=== PATIENT | male | born 1975 | race African-American/Black ===

== ENCOUNTER 2021-10-04 09:05 | Emergency (ER) | payer BC, OTHER ==
[~2021-10-04] VITALS: Ht 188 cm; Wt 116.0 kg
[2021-10-04] MEDS ORDERED: KETOROLAC 15MG/ML VIAL IV ONE (10:00)
[2021-10-04] MEDS ORDERED: SODIUM CHLORIDE 0.9% 1,000 ML IV ONE (10:00)
[2021-10-04 10:07] LABS: BASOPHILS % 0.7 % (0.0-2.0); EOSINOPHILS % 1.1 % (0.0-5.0); HEMATOCRIT. 45.7 % (42.0-52.0); LYMPHOCYTES % 38.8 % (20.0-50.0); MEAN CORPUSCULAR HEMOGLOBIN 29.7 pg (28.0-32.0); MEAN CORPUSCULAR VOLUME 90.5 fL (80.0-94.0); MEAN PLATELET VOLUME 9.1 fl (7.4-10.4); MONOCYTES % 9.7 % (2.0-8.0); NEUTROPHILS % 49.7 % (40.0-76.0); PLATELET 221 x1000/uL (130-400); RED BLOOD CELL COUNT 5.05 mill/uL (4.7-6.1); RED CELL DISTRIBUTION WIDTH 14.4 % (11.6-14.6)
[2021-10-04 10:09] LABS: CHLORIDE 110 mEq/L (98-107)
[2021-10-04 10:25] LABS: CLARITY URINE CLEAR (CLEAR); COLOR URINE YELLOW (YELLOW); KETONES URINE NEGATIVE (NEGATIVE); LEUKOCYTE ESTERASE URINE NEGATIVE (NEGATIVE); NITRITE URINE NEGATIVE (NEGATIVE); OCCULT BLOOD URINE NEGATIVE (NEGATIVE); PH URINE 6.5 (4.5-8.0); PROTEIN URINE NEGATIVE (NEGATIVE); SPECIFIC GRAVITY URINE 1.023 (1.005-1.030); UROBILINOGEN URINE 0.2 E.U./dL (0.2-1.0)
[2021-10-04 10:36] LABS: HCG SCREEN NEGATIVE
[2021-10-04 10:52] LABS: METHADONE URINE SCREEN NEGATIVE (NEGATIVE)
[2021-10-04 10:53] LABS: *AMPHETAMINES SCREEN URINE NEGATIVE (NEGATIVE); *BARBITURATES SCREEN URINE NEGATIVE (NEGATIVE); *BENZODIAZEPINES SCREEN URINE NEGATIVE (NEGATIVE); *COCAINE SCREEN URINE NEGATIVE (NEGATIVE); CANNABINOID URINE SCREEN PRESUMTIVE POSITIVE (NEGATIVE); OPIATES URINE SCREEN NEGATIVE (NEGATIVE); PHENCYCLIDINE URINE SCREEN NEGATIVE (NEGATIVE)
[2021-10-04] MEDS ORDERED: PROT40 MT (12:12)
[2021-10-04] MEDS ORDERED: ONDA4TAB5 MT (12:12)
[2021-10-04] MEDS ORDERED: IBUP-2029 MT (12:12)
[2021-10-04] MEDS ORDERED: DICY10CA88 MT (12:12)
[2021-10-04 12:49] VITALS: BP 128/80
[2021-10-04] MEDS ORDERED: IOHEXOL-300 100 ML BOTTLE ONE (13:02)
== END 2021-10-04 12:51 | disposition home or self-care (01) ==
LOC: ER 09:05
DX: R10.13 Epigastric pain (principal); R74.8 Abnormal levels of other serum enzymes; F17.290 Nicotine dependence, other tobacco product, uncomplicated; Z98.890 Other specified postprocedural states
CPT/HCPCS: 36415; 74177; 76700; 80053; 80305; 81003; 83690; 84703; 85025; 96361; 96374; 99285; J1885; J7030; Q9967